=== PATIENT | male | born 1960 | race African-American/Black ===

== ENCOUNTER 2017-06-21 18:36 | Emergency (ER) | payer BC ==
[~2017-06-21] VITALS: Ht 175.3 cm; Wt 96.2 kg
[2017-06-21 22:03] VITALS: BP 132/74
== END 2017-06-21 22:03 | disposition home or self-care (01) ==
LOC: ED 18:36
DX: M54.2 Cervicalgia (principal); M54.5 Low back pain; R51 Headache; I10 Essential (primary) hypertension; V43.52XA Car driver injured in collision with other type car in traffic accident, initial encounter; Y93.19 Activity, other involving water and watercraft; Y92.488 Other paved roadways as the place of occurrence of the external cause; Y99.8 Other external cause status
CPT/HCPCS: Q0092